=== PATIENT | female | born 1985 | race Caucasian/White ===

== ENCOUNTER 2017-02-22 21:36 | Emergency (ER) | payer OTHER ==
[~2017-02-22] VITALS: Ht 172.7 cm; Wt 72.8 kg
[~2017-02-22 21:36] MED LIST: CIPROFLOXACN500 MG PO; IBUPROFEN600 MG PO; ONDANSETRON4 MG PO; PRE-NATAL PO; PYRIDIUM200 MG PO; ZYRTEC10 M3 PO
[2017-02-22 22:18] LABS: HEMATOCRIT 34.4 % (37.0-47.0); MEAN CELL VOLUME 95.3 fL CALC (80.0-100.0); MEAN CORPUSCULAR HGB 30.5 pG CALC (26.0-32.0); NEUT# 7.84 thou/uL (2.00-7.15); RED BLOOD COUNT 3.61 mill/uL (4.20-5.60); RED CELL DISTRI WIDTH 17.6 % (11.5-15.5)
[2017-02-22 22:31] LABS: ALBUMIN 3.4 g/dL (3.2-5.0); ALKALINE PHOSPHATASE 159 u/l (38-126); ANION GAP 13 (6-22 (CALC)); BILIRUBIN, TOTAL 0.4 mg/dL (0.0-1.4); BUN 10 mg/dL (7-17); BUN/CREATININE RATIO 18 (12-20 (CALC)); CALCIUM 9.3 mg/dL (8.4-10.2); CARBON DIOXIDE 20 mmol/l (22-30); CHLORIDE 107 mmol/l (95-108); CREATININE 0.6 mg/dL (0.5-1.0); GFR > 60 ML/MIN (>=60 (CALC)); GFR FOR AFR.AMER. > 60 ML/MIN (>=60 (CALC)); GLUCOSE 75 mg/dL (65-105); POTASSIUM 4.1 mmol/l (3.5-5.1); SGOT/AST 19 u/l (14-36); SGPT/ALT 17 u/l (9-52); SODIUM 136 mmol/l (137-146); TOTAL PROTEIN 6.7 g/dL (6.3-8.2)
[2017-02-22 22:43] LABS: MYOGLOBIN 16 ng/mL (0 - 62)
[2017-02-23 01:19] VITALS: BP 104/67
[2017-02-24] MEDS ORDERED: CLARITIN-D1 TA2 PO (12:03)
[2017-02-24] MEDS ORDERED: ZOFRAN ODT4 MG PO (12:04)
== END 2017-02-23 01:18 | DRG 781 ==
LOC: ED 21:36
PROVIDERS: Emergency Medicine
DX: O26.893 Other specified pregnancy related conditions, third trimester (principal); F17.210 Nicotine dependence, cigarettes, uncomplicated; O99.333 Smoking (tobacco) complicating pregnancy, third trimester; R06.02 Shortness of breath; R07.89 Other chest pain; R07.9 Chest pain, unspecified; Z3A.40 40 weeks gestation of pregnancy

== ENCOUNTER 2017-02-24 11:46 | Inpatient (IN) | payer SELFPAY ==
[~2017-02-24] VITALS: Ht 172.7 cm; Wt 71.2 kg
[2017-02-24] VITALS (30 sets, daily range): BP systolic 98–138; BP diastolic 50–88
[2017-02-24] MEDS ORDERED: CLARITIN-D1 TA2 PO (12:03)
[2017-02-24] MEDS ORDERED: ZOFRAN ODT4 MG PO (12:04)
[2017-02-24 13:04] LABS: URINE BILIRUBIN - DIPSTICK NEGATIVE (NEGATIVE); URINE BLOOD DIPSTICK NEGATIVE (NEGATIVE); URINE CLARITY CLEAR; URINE COLOR YELLOW; URINE GLUCOSE - DIPSTICK NEGATIVE (NEGATIVE); URINE KETONE NEGATIVE (NEGATIVE); URINE LEUK ESTERASE NEGATIVE (NEGATIVE); URINE NITRITE - DIPSTICK NEGATIVE (Negative); URINE PROTEIN - DIPSTICK NEGATIVE (NEG-TRACE); URINE SPECIFIC GRAVITY 1.015; URINE UROBILINOGEN - DIPSTICK 0.2 E.U./dL (0.2)
[2017-02-24 13:08] LABS: BARBITURATES NEGATIVE (NEGATIVE); COCAINE NEGATIVE (NEGATIVE); METHADONE NEGATIVE (NEGATIVE); OXCYCODONE NEGATIVE (NEGATIVE); TETRAHYDROCANNABIONOL NEGATIVE (NEGATIVE); TRICYLIC ANTIDEPRESSANTS NEGATIVE (NEGATIVE)
[2017-02-24 14:55] LABS: HEMATOCRIT 34.8 % (37.0-47.0); HEMOGLOBIN 11.3 g/dl (12.0-16.0); IMMATURE GRANULOCYTES 0.8 % (0.0-1.0); MEAN CELL VOLUME 93.5 fL CALC (80.0-100.0); MEAN CORPUSCULAR HGB 30.4 pG CALC (26.0-32.0); MEAN CORPUSCULAR HGB CONC 32.5 g/L CALC (32.0-36.0); NEUT# 8.88 thou/uL (2.00-7.15); RED BLOOD COUNT 3.72 mill/uL (4.20-5.60); RED CELL DISTRI WIDTH 18.1 % (11.5-15.5)
[2017-02-24 15:09] LABS: ALBUMIN 3.5 g/dL (3.2-5.0); ALKALINE PHOSPHATASE 179 u/l (38-126); ANION GAP 14 (6-22 (CALC)); BILIRUBIN, TOTAL 0.6 mg/dL (0.0-1.4); BUN 7 mg/dL (7-17); BUN/CREATININE RATIO 14 (12-20 (CALC)); CALCIUM 9.1 mg/dL (8.4-10.2); CARBON DIOXIDE 20 mmol/l (22-30); CHLORIDE 106 mmol/l (95-108); CREATININE 0.5 mg/dL (0.5-1.0); GFR > 60 ML/MIN (>=60 (CALC)); GFR FOR AFR.AMER. > 60 ML/MIN (>=60 (CALC)); GLUCOSE 65 mg/dL (65-105); POTASSIUM 4.2 mmol/l (3.5-5.1); SGOT/AST 21 u/l (14-36); SGPT/ALT 24 u/l (9-52); SODIUM 135 mmol/l (137-146)
[2017-02-25 03:47] VITALS: BP 97/55
[2017-02-25 06:36] LABS: HEMOGLOBIN 9.9 g/dl (12.0-16.0); IMMATURE GRANULOCYTES 0.6 % (0.0-1.0); MEAN CELL VOLUME 95.1 fL CALC (80.0-100.0); MEAN CORPUSCULAR HGB 30.4 pG CALC (26.0-32.0); MEAN CORPUSCULAR HGB CONC 31.9 g/L CALC (32.0-36.0); NEUT# 8.27 thou/uL (2.00-7.15); RED BLOOD COUNT 3.26 mill/uL (4.20-5.60); RED CELL DISTRI WIDTH 17.8 % (11.5-15.5)
[2017-02-25 09:26] VITALS: BP 100/71
[2017-02-25 17:45] VITALS: BP 111/74
[2017-02-25 20:00] VITALS: BP 110/61
[2017-02-26 02:28] VITALS: BP 109/71
[2017-02-26] MEDS ORDERED: IBUPROFEN600 MG PO (09:27)
[2017-02-26] MEDS ORDERED: FERR SULFATE325 MG PO (09:28)
== END 2017-02-26 10:45 | disposition home or self-care (01) | DRG 775 ==
LOC: OBOP 11:46 → OB 11:47 → OBOP 13:44 → OB 13:45
PROC: 10D07Z6 Extraction of Products of Conception, Vacuum, Via Natural or Artificial Opening (ICD-10-PCS; principal; 2017-02-24)
PROC: 10907ZC Drainage of Amniotic Fluid, Therapeutic from Products of Conception, Via Natural or Artificial Opening (ICD-10-PCS; 2017-02-24)
DX: O76 Abnormality in fetal heart rate and rhythm complicating labor and delivery (principal); D62 Acute posthemorrhagic anemia; O90.81 Anemia of the puerperium; Z3A.40 40 weeks gestation of pregnancy; Z37.0 Single live birth

== ENCOUNTER 2019-08-11 12:28 | Observation (INO) | payer SELFPAY ==
[~2019-08-11] VITALS: Ht 172.7 cm; Wt 57.9 kg
[~2019-08-11 12:28] MED LIST changes: +CLARITIN-D1 TA2 PO; +FERR SULFATE325 MG PO; +ZOFRAN ODT4 MG PO
--- NOTE | 2019-08-11 12:28 | NUR ---
PT TO ROOM WITH VIA EMS STRETCHER.
--- NOTE | 2019-08-11 12:46 | NUR ---
EMS UNSUCCESSFUL IN IV ATTEMP, SAMAI LONG UNSUCCESSFUL, AND MYSELF UNSUCCESSFUL. PT REFUSING FOR IJ IN NECK AT THIS TIME.
--- NOTE | 2019-08-11 12:51 | NUR ---
NOTIFIED. PTS MOTHER IN WAITING ROOM REQUESTING TO COME BACK. WE ARE WALKING BACK TO ROOM, I ASKED MOTHER WHY SHE INFORMED REGISTRATION THAT WE NEED TO S[facility] TO AN INFECTIOUS DISEASE DOCTOR, SHE STATES BECAUSE' WE DONT HAVE SHIT HERE AND DOESNT KNOW WHY SHE WAS BROUGHT TO THIS [facility] ANYWAY," PT STATES ITS OKAY MOM I ASKED TO COME HERE. PT UPSET THAT WE ARE UNABLE TO GET IV SITE. LAB NOTIFIED TO COME DOWN FOR STRAIGHT LAB STICK
--- NOTE | 2019-08-11 12:56 | NUR ---
WARM BLANKET GIVEN PER PT REQUEST.
[2019-08-11 13:25] LABS: HCG SERUM/URINE (NEG/POS) NEGATIVE (NEGATIVE)
[2019-08-11 13:28] LABS: BILIRUBIN, TOTAL 0.8 mg/dL (0.0-1.4); BUN 17 mg/dL (7-17); BUN/CREATININE RATIO 19 (12-20 (CALC)); CHLORIDE 101 mmol/l (95-108); CPK 55 u/l (30-165); CREATININE 0.9 mg/dL (0.5-1.0); GFR > 60 ML/MIN (>=60 (CALC)); GFR FOR AFR.AMER. > 60 ML/MIN (>=60 (CALC)); MAGNESIUM 1.8 mg/dL (1.6-2.3); POTASSIUM 3.8 mmol/l (3.5-5.1); SODIUM 138 mmol/l (137-146); TOTAL PROTEIN 6.6 g/dL (6.3-8.2)
[2019-08-11 13:30] LABS: HEMATOCRIT 34.1 % (37.0-47.0); HEMOGLOBIN 10.9 g/dl (12.0-16.0); IMMATURE GRANULOCYTES 2.2 % (0.0-5.0); MEAN CORPUSCULAR HGB 27.9 pG CALC (26.0-32.0); NEUT# 13.48 thou/uL (2.00-7.15); RED BLOOD COUNT 3.9 mill/uL (4.20-5.60); RED CELL DISTRI WIDTH 15.4 % (11.5-15.5)
[2019-08-11 13:40] LABS: ALKALINE PHOSPHATASE 275 u/l (38-126); ANION GAP 16 (6-22 (CALC)); CARBON DIOXIDE 25 mmol/l (22-30); SGOT/AST 59 u/l (14-36)
--- NOTE | 2019-08-11 13:44 | NUR ---
XRAY HERE TO TAKE PT DOWN TO XRAY DEPT
[2019-08-11 13:46] LABS: MEAN CELL VOLUME 87.4 fL CALC (80.0-100.0)
--- NOTE | 2019-08-11 14:13 | NUR ---
PT STATES UNABLE TO GIVE URINE AT THIS TIME AND IS REFUSING A STRAIGHT CATH TO OBTIAN URINE
--- NOTE | 2019-08-11 14:42 | NUR ---
UNABLE TO OBTAIN IV ACCESS, UNABLE TO GIVE NS FLUIDS. PT REFUSING IJ AND CENTRAL LINE
--- NOTE | 2019-08-11 15:09 | NUR ---
Shelly BARTHOLOMEW CALLED TO TRY FOR A MIDLINE. PT AGREED TO HAVE SOMEONE TRY ONE MORE TIME
--- NOTE | 2019-08-11 16:00 | NUR ---
JAH BARTHOLOMEW RN WAS ABLE TO PLACE A 22 IN RIGHT AC.
[2019-08-11 16:17] LABS: URINE BILIRUBIN - DIPSTICK NEGATIVE (NEGATIVE); URINE BLOOD DIPSTICK SMALL (NEGATIVE); URINE COLOR YELLOW; URINE GLUCOSE - DIPSTICK NEGATIVE (NEGATIVE); URINE KETONE NEGATIVE (NEGATIVE); URINE LEUK ESTERASE NEGATIVE (NEGATIVE); URINE NITRITE - DIPSTICK NEGATIVE (Negative); URINE PROTEIN - DIPSTICK TRACE mg/dL (NEG-TRACE); URINE SPECIFIC GRAVITY <=1.005; URINE UROBILINOGEN - DIPSTICK 0.2 E.U./dL (0.2)
--- NOTE | 2019-08-11 16:19 | NUR ---
IV FLUID AND ANTIBOTICS INFUSING.
[2019-08-11 16:20] LABS: BARBITURATES NEGATIVE (NEGATIVE); COCAINE NEGATIVE (NEGATIVE); METHADONE NEGATIVE (NEGATIVE); OXCYCODONE POSITIVE (NEGATIVE); TETRAHYDROCANNABIONOL NEGATIVE (NEGATIVE); TRICYLIC ANTIDEPRESSANTS NEGATIVE (NEGATIVE); URINE SQUAMOUS EPITHELIAL CELL FEW EPI/hpf (0-FEW)
--- NOTE | 2019-08-11 16:50 | NUR ---
DR. PHIPPS CALLED FOR ADMITTING ORDERS, STATES WILL SOON HE IS DONE SEEING A PT.
--- NOTE | 2019-08-11 17:30 | NUR ---
Admission Note Report Given to: sbar printed to floor Transported by: Wheelchair x Stretcher Transported with: x Nurse Transporter x Patent IV O2 Sausage Linker
[2019-08-11 17:44] VITALS: BP 106/73
--- NOTE | 2019-08-11 18:08 | NUR ---
PT TRANSPORTED TO [facility] VIA STRETCHER @4851. VS DONE. PT A/O X3. VERY DROWSY. RESP EVEN AND UNLABORED. LUNG SOUNDS CLEAR. BOWEL SOUNDS ACTIVE X3. STRONG RADIAL AND PEDAL PULSES. RASH NOTED TO BLE. SLIGHT RASH APPEARING TO BE FORMING ON BUE. PT C/O GENERALIZED WEAKNESS/PAIN, PAIN MORE SO IN SHOULDERS, BACK OF BUTT, AND RT KNEE. 10 OUT OF 10 ON PAIN SCALE. DISCUSSED W/ PT I WILL GET ORDER FOR PAIN MEDICATION. REPOSITIONED FOR COMFORT. PT STATES UNDERSTANDING AND FALLS BACK TO SLEEP. #22 RAC NS @100. SITE APPEARS HEALTHY. PT DENIES ANY FURTHER NEEDS. POC DISCUSSED. SAFETY PRECAUTIONS IN PLACE. CALL LIGHT IN REACH. WILL CONTINUE TO MONITOR.
[2019-08-11 19:10] VITALS: BP 110/75
--- NOTE | 2019-08-11 19:30 | NUR ---
PATIENT RESTING IN BED-LIGHTS ARE OFF. PATIENT CURLED UP IN POSITION. APPEARS SLEEPING-DOESN'T RESPOND TO VERBAL STIMULI. RESP ARE EVEN AND UNLABORED. IVF PATENT AND INFUSING RAC SITE ORDERED. CALL LIGHT IN REACH.WILL CONT TO MONITOR.
--- NOTE | 2019-08-11 20:30 | NUR ---
PATIENT REMAINS IN BED IN THE DARK. AFTER SPEAKING TO THE PATIENT SEVERAL TIMES PATIENT RESPONDED TO QUESTIONS. PATIENT SPEAKS VERY SOFTLY WITH EYES CLOSED. HAVE TO ASK QUESTIONS 2-3 TIMES BEFORE PATIENT RESPONDS AND REMAINS WITH EYES CLOSED. LOVENOX GIVEN ORDERED. IV SITE TO RAC REMAINS INTACT WITH NS PATENT AND INFUSING AT 100CC/HR. LUNGS ARE CLEAR. ABD IS SOFT WITH ACTIVE BS. STATES THAT HER LAST BM WAS YESTERDAY. DEIES ANY PROBLEMS WITH URINATION. PATIENT WITH SIGNIFICANT RED RAISED RASH TO BOTH FEET UP TO MID-CALF AND TO BUE WELL. DENIES BEING ITCHY. SAFETY PRECAUTIONS REINFORCED. CALL LIGHT IN REACH. WILL CONT TO MONITOR.
--- NOTE | 2019-08-11 23:30 | NUR ---
PATIENT RESTING IN BED-HR-119. PATIENT WITH SEVERE PAIN IN ALL JOINTS. CONT WITH RASH EARLIER. MEDICATED WITH LORTAB ORDERED FOR PAIN. PATIENT WITH THE SHAKES BUT NO FEVER. IVF PATENT AND INFUSING VIA RIGHT AC SITE AT 100CC/HR. SEVERE WEAKNESS. CALL LIGHT IN REACH. WILL CONT TO MONITOR.
[2019-08-11 23:40] VITALS: BP 111/74
--- NOTE | 2019-08-12 01:54 | NUR ---
PATIENT APPEARS SLEEPING AT THIS TIME-EYES CLOSED AND CURLED UP. IVF PATENT AND INFUSING AT 100CC/HR VIA RAC SITE. CALL LIGHT IN REACH. WILL CONT TO MONITOR.
[2019-08-12 03:47] VITALS: BP 110/73
--- NOTE | 2019-08-12 04:00 | NUR ---
PATIENT RESTING IN BED-MOANING IN PAIN. STATES NO RELIEF FROM PAIN MED GIVEN EARLIER. PATIENT NEEDS ASSIST FOR EVERYTHING INCLUDING PICKING UP HER WATER GLASS AND REPOSITIONING HERSELF. PATIENT PLACED ON DROPLET PRECAUTIONS FOR INFLUEZA B-POSITIVE. IVF PATENT AND INFUSING VIA RIGHT AC SITE AT 100CC/HR. SITE REMAINS HEALTHY AT THIS TIME. CALL LIGHT IN REACH. WILL CONT TO MONITOR.
--- NOTE | 2019-08-12 06:00 | NUR ---
PATIENT MAX ASSIST OOB TO THE BSC TO VOID 1300CC OF URINE. ASSISTED BACK TO BED. PATIENT CONT TO C/O SEVERE GENERALIZED PAIN. IVF PATENT AND INFUSING VIA RIGHT AC AT 100CC/HR. CALL LIGHT IN REACH. WILL CONT TO MONITOR.
[2019-08-12 07:59] VITALS: BP 114/72
--- NOTE | 2019-08-12 08:00 | NUR ---
REPORT RECEIVED FROM ETHAN MCCARTHY. PT SITTING UPRIGHT IN BED. DROWSY. DENIES PAIN. REFUSING BREAKFAST AT THIS TIME. STATES "I JUST WANT TO SLEEP." PLAN OF CARE DISCUSSED. CALL LIGHT REVIEWED AND IN REACH. PT NEEDS REINFORCEMENT OF INFORMATION.
--- NOTE | 2019-08-12 09:58 | NUR ---
OBDULIA MORRIS IN TO SEE PT. PLAN OF CARE UPDATED. PT. CURSING AT STAFF. UNABLE TO STAY AWAKE FOR CONVERSATION. REPORTS SEVERE GENERALIZED PAIN. LORTAB PO ADMINISTERED. PT REFUSING SHOWER AT THIS TIME. BODY ODOR NOTED. RED SCATTERED RASH TO LOWER LEGS NOTED. LEFT ARM SWOLLEN, LROM TO LIMB.
--- NOTE | 2019-08-12 10:11 | NUR ---
S: MARAH WINSLOW is a 33 F who presents with leucocytosis, vasculitis, and polysubstance abuse. She has a history of n/a. All medications in patient's chart were reviewed. O: VS: BP 114/72, P 119 , RR 16 ,T 97.2 W 57.861 kg, HT 68 inches, Scr= 0.9, CrCl= 81.2 ml/min A: Blood culture is pending. P: Patient is on vancomycin Vancomycin ordered for pharmacy to dose. Start Vancomycin 1 gram IV q12h. Vancomycin trough is drawn before the 4th dose on 08/13/19 at 0730. Vancomycin goal trough is between 15-20. Pharmacy will follow and or advise on antibiotics use as needed.
[2019-08-12 10:42] LABS: HEMATOCRIT 29.7 % (37.0-47.0); HEMOGLOBIN 9.5 g/dl (12.0-16.0); IMMATURE GRANULOCYTES 3.2 % (0.0-5.0); MEAN CELL VOLUME 88.9 fL CALC (80.0-100.0); MEAN CORPUSCULAR HGB 28.4 pG CALC (26.0-32.0); NEUT# 10.97 thou/uL (2.00-7.15); RED BLOOD COUNT 3.34 mill/uL (4.20-5.60); RED CELL DISTRI WIDTH 15.7 % (11.5-15.5)
[2019-08-12 11:11] LABS: ALKALINE PHOSPHATASE 223 u/l (38-126); ANION GAP 14 (6-22 (CALC)); BUN 14 mg/dL (7-17); BUN/CREATININE RATIO 18 (12-20 (CALC)); CARBON DIOXIDE 22 mmol/l (22-30); CHLORIDE 106 mmol/l (95-108); CREATININE 0.8 mg/dL (0.5-1.0); GFR > 60 ML/MIN (>=60 (CALC)); GFR FOR AFR.AMER. > 60 ML/MIN (>=60 (CALC)); POTASSIUM 3.6 mmol/l (3.5-5.1); SGOT/AST 36 u/l (14-36); SODIUM 137 mmol/l (137-146)
--- NOTE | 2019-08-12 12:31 | NUR ---
DR. ELLINGTON IN TO SEE PT. PLAN OF CARE UPDATED. NEW MED SOLUMEDROL REVIEWED AND ADMINISTERED. PT'S MOTHER IN NOW AND UPDATED PER PT'S REQUEST.
--- NOTE | 2019-08-12 14:15 | NUR ---
PT ENCOURAGED TO VOID, NOT VOIDED THIS SHIFT. PT REFUSING. STATES "I DONT NEED TO." BLADDER SCAN SHOWS >999ML. PT ASSISTED TO BSC WITH LOTS OF ENCOURAGEMENT. 1175 ML DARK VIJAYA URINE VOIDED. PT ASSISTED BACK TO BED. PT ASLEEP BEFORE ICE SKATING TEACHER OUT OF ROOM.
[2019-08-12 14:45] VITALS: BP 124/88
--- NOTE | 2019-08-12 16:51 | NUR ---
PT SITTING UPRIGHT IN BED. SLEEPING. UNABLE TO STAY AWAKE TO FINISH SENTENCE.
--- NOTE | 2019-08-12 18:37 | NUR ---
PT HAD PIZZA DELIVERED TO ROOM AT THIS TIME.
--- NOTE | 2019-08-12 18:45 | NUR ---
REPORT FROM BRIAN LONG. PT SITTING UP IN BED EATING PIZZA WITH VISITOR AT BEDSIDE. PT ALERT AND ORIENTED, A LITTLE DROWSY AT THIS TIME. PT C/O GENERALIZED PAIN, STATES STERIODS SEEM TO BE WORKING HOWEVER STILL REQUEST PAIN MEDICATION. WILL ADMINISTER WHEN AVAILABLE. IV SITE APPEARS HEALTHY WITH IV FLUIDS INFUSING. NO APPARENT RESPIRATORY DISTRESS NOTED. PT DENIES ANY OTHER WANTS OR NEEDS. DISCUSSED POC. PT VERBALIZED UNDERSTANDING. CALL LIGHT WITHIN REACH. WILL CONTINUE TO MONITOR.
[2019-08-12 19:02] VITALS: BP 113/74
--- NOTE | 2019-08-12 19:13 | NUR ---
PT MEDICATED WITH PRN LORTAB FOR GENERALIZED PAIN 07/29. WILL CONTINUE TO MONITOR.
[2019-08-12 23:30] VITALS: BP 101/70
--- NOTE | 2019-08-12 23:50 | NUR ---
PT UP TO BSC TO VOID. MEDICATED FOR GENERALIZED PAIN 9-10. PT DENIES ANY OTHER WANTS OR NEEDS. CALL LIGHT WITHIN REACH. WILL CONTINUE TO MONITOR.
--- NOTE | 2019-08-13 03:11 | NUR ---
PT RESTING IN BED WITH EYES CLOSED. NO APPARENT DISTRESS NOTED. CALL LIGHT WITHIN REACH. WILL CONTINUE TO MONITOR.
[2019-08-13 04:32] VITALS: BP 95/54
[2019-08-13 05:40] LABS: HEMATOCRIT 28.8 % (37.0-47.0); IMMATURE GRANULOCYTES 4.7 % (0.0-5.0); MEAN CELL VOLUME 87.8 fL CALC (80.0-100.0); MEAN CORPUSCULAR HGB 27.4 pG CALC (26.0-32.0); MEAN CORPUSCULAR HGB CONC 31.3 g/L CALC (32.0-36.0); NEUT# 12.03 thou/uL (2.00-7.15); RED BLOOD COUNT 3.28 mill/uL (4.20-5.60); RED CELL DISTRI WIDTH 15.9 % (11.5-15.5)
[2019-08-13 05:44] LABS: INTERNATIONAL NORMALIZED RATIO 1.1 RATIO (0.7-1.3); PROTHROMBIN TIME 11.8 SECONDS (9.0-12.5)
[2019-08-13 05:48] LABS: ANION GAP 12 (6-22 (CALC)); BUN 15 mg/dL (7-17); BUN/CREATININE RATIO 25 (12-20 (CALC)); CARBON DIOXIDE 22 mmol/l (22-30); CHLORIDE 111 mmol/l (95-108); CREATININE 0.6 mg/dL (0.5-1.0); GFR > 60 ML/MIN (>=60 (CALC)); GFR FOR AFR.AMER. > 60 ML/MIN (>=60 (CALC)); SODIUM 141 mmol/l (137-146)
--- NOTE | 2019-08-13 06:50 | NUR ---
PT REPORT RECIEVED FROM BEATRIS ARANA. PT REINA. NO S/S OF DISTRESS. CALL LIGHT IN REACH. WILL CONTINUE TO MONITOR.
[2019-08-13 07:06] VITALS: BP 96/64
--- NOTE | 2019-08-13 07:06 | NUR ---
PT A/O X3; SLIGHTLY DROWSY. RESP EVEN AND UNLABORED. LUNG SOUNDS CLEAR. BOWEL SOUNDS ACTIVE X4. STRONG RADIAL AND PEDAL PULSES. RED RAISED RASH TO BLE. SKIN INTACT. PT HAS GENERALIZED WEAKNESS. #22 RAC NS @100. SITE APPEARS HEALTHY. PT DENIES ANY PAIN OR NEEDS. POC DISCUSSED. SAFETY PRECAUTIONS IN PLACE. CALL LIGHT IN REACH. WILL CONTINUE TO MONITOR
--- NOTE | 2019-08-13 08:14 | NUR ---
Preliminary blood culture results showing gram positive cocci in both sets, called to physician. Pt has coverage with Vancomycin.
--- NOTE | 2019-08-13 08:32 | NUR ---
Vancomycin consult Weight: 57.9 Kilograms Vancomycin single level analysis: Current dose being given: 1000 mg Current dosing interval: 12 hrs @0800,2000 Current infusion time (hrs): 2 Single level Trough Data: Trough level obtained: 8 mcg/ml Timing of trough - # of hrs before next dose: 0.5 Hrs New rate constant (mayi): 0.122 hr-1 Half-life: 5.68 Hours Vd from levels: 40.53 Liters (0.7 L/kg) Vancomycin 1000 mg q 8 hrs at 0000,0800,1600, next dose at 1600 today. Infuse over 2 hrs Expected Cpeak: 35 mcg/mL Expected Ctrough: 17 mcg/mL CLvanco= 4.945 L/hr Next trough 08/14/19 at 0730
--- NOTE | 2019-08-13 11:33 | NUR ---
PT SLEEPING. NO S/S OF DISTRESS. CALL LIGHT IN REACH. WILL CONTINUE TO MONITOR.
--- NOTE | 2019-08-13 13:35 | NUR ---
PT REFUSING TO STAY AT [facility]. PT STATES "I AM CHECKING MYSELF OUT AND GOING TO [facility]". ARELI MINER, MYSELF, AND DR. ELLINGTON ATTEMPTED TO GET PT TO REMAIN IN HOSPITAL AND EXPLAIN SEVERITY OF ILLNESS ON SEPERATE OCCASIONS. PT REFUSES. AMA FORMED SIGNED. IV REMOVED; CATHETER INTACT. PT GETTING DRESSED AT THIS TIME.
--- NOTE | 2019-08-13 13:54 | NUR ---
PT LEFT FACILTY AMA VIA WC TRANSPORTED DOWNSTAIRS BY FRED IRVIN
== END 2019-08-13 13:35 | disposition left against medical advice (07) | DRG 813 ==
LOC: ED 12:28 → ED-I 16:13 → ED 16:31 → MS2 16:32
PROVIDERS: Family Medicine; Nurse Practitioner Family; ADMIT Internal Medicine; ATTEND Internal Medicine
DX: D69.2 Other nonthrombocytopenic purpura (principal); R78.81 Bacteremia; L03.116 Cellulitis of left lower limb; L03.115 Cellulitis of right lower limb; R01.1 Cardiac murmur, unspecified; M25.50 Pain in unspecified joint; M79.10 Myalgia, unspecified site; D72.829 Elevated white blood cell count, unspecified; F15.10 Other stimulant abuse, uncomplicated; F11.10 Opioid abuse, uncomplicated; F17.210 Nicotine dependence, cigarettes, uncomplicated; J10.1 Influenza due to other identified influenza virus with other respiratory manifestations; B95.61 Methicillin susceptible Staphylococcus aureus infection as the cause of diseases classified elsewhere
CPT/HCPCS: G0378; J1650